=== PATIENT | female | born 1950 | race Caucasian/White ===

== ENCOUNTER → 2017-08-21 | Outpatient (CLI) | payer OTHER ==
[~2017-08-21] MED LIST: NS 100 ML IV 100 ML IV ONE
[2017-08-21 09:50] LABS: CREATININE 1.15 mg/dL (0.55-1.02)
--- NOTE | 2017-08-21 11:38 | CT ---
HISTORY: Periumbilical pain. Abdominal pain. Study: Computed tomography of the abdomen and pelvis: Multiple axial images were obtained throughou t the abdomen and pelvis after the ingestion of oral contrast and the injection of intravascular cont rast per standard protocol. Radiation dose reduction techniques utilized. Comparison: None Findings: Examination of the lung bases demonstrate minimal interstitial scarring. No pleural effusions, paren chymal infiltrates or pulmonary nodules are identified. The heart size is normal. There appears to be at least mild coronary arterial calcification. A small hiatal hernia is present. No appreciable pericardial effusion is noted. The liver demonstrates a tiny hypodense lesion in the right lobe of the liver laterally measuring zulay roximately 4 mm maximum dimension, most likely a tiny cyst. The gallbladder is nondistended. I see no evidence for calcified gallstones. No appreciable biliary duct dilatation is noted. The pancreas is normal in its appearance. A small splenic lobule is present. The spleen is normal in its appear ance. Mild thickening of the left adrenal gland is noted without a focal lesion. The right adrenal gland is normal. Both kidneys show mild lobular contour suggesting prior ischemic or inflammatory sc arring. There is what appears to be a large calcification in the upper pole of the left kidney measu ring approximately 11 mm in maximum dimension. This appears to be nonobstructing. The ureters are n ondilated. Several calcifications are present within the anatomic pelvis, felt represent phleboliths . The abdominal aorta shows moderate atherosclerotic change in the mid abdominal aorta. Mild is not ed along with the proximal renal arteries bilaterally. There is mild ectasia. The iliac arteries ar e normal in their appearance. The uterus is small and midline. No adnexal masses are identified. T he bladder contour is smooth. I see no evidence of free pelvic fluid or ascites. Injection granulom as are present along the gluteal regions. The stomach is nondistended. The duodenum and small bowel are normal. No evidence of mesenteric jose daniel nopathy is identified. The terminal ileum is normal. The appendix is normal. The ascending colon i s normal. There is mild wall thickening in the hepatic flexure, most likely due to nondistention. T he transverse colon is moderately redundant. Minimal wall thickening is noted. The descending colon is nondistended. There appear to be a couple diverticula present. There are a few diverticula at t he junction of the descending colon and sigmoid colon. The sigmoid colon is nondistended. There zulay ear be several diverticula present. The sigmoid colon is moderately redundant. Examination of the bone windows demonstrate [id number] anterior wedging of L2. Minimal endplat e compression is noted at this level. Mild endplate compression noted at L4 and moderate at L51. Th ngoc all appear to be remote. All moderately severe to severe degenerative changes noted in both hips , right greater than left. IMPRESSION: 1. There appears to be mild cortical irregularity both kidneys, most likely due to chronic ischemic change or inflammatory reaction. 2. Nonobstructing left renal calculus. 3. Mild diverticular disease. I see no evidence of diverticulitis. 4. There appear to be remote compression fracture of L2 anteriorly with endplate compression of L4 a nd L5. These all appear remote. 5. Degenerative change in the hips as described above. Reported By:
== END | disposition home or self-care (01) | DRG 392 ==
LOC: RAD 09:07
PROVIDERS: ATTEND Nurse Practitioner Family
DX: R10.84 Generalized abdominal pain (principal); R10.33 Periumbilical pain; N20.0 Calculus of kidney; K57.90 Diverticulosis of intestine, part unspecified, without perforation or abscess without bleeding; M24.152 Other articular cartilage disorders, left hip; M24.151 Other articular cartilage disorders, right hip
CPT/HCPCS: 36415; 74177; 82565; 84520; A4222

== ENCOUNTER → 2017-09-29 | Outpatient (CLI) | payer OTHER ==
--- NOTE | 2017-09-29 15:54 | MRI ---
HISTORY: Low back pain Study: MRI lumbar spine without contrast Comparison: None Technique: Multiplanar multi-sequence MRI of the lumbar spine was obtained. Sagittal T1, sagittal T2 , and stir weighted images, axial T1, and axial T2 images were obtained. Findings: Imaging of the lumbar spine demonstrates mild, grade 1, anterolisthesis of L4 on L5, likely secondary to advanced facet arthropathy at this level. There are chronic compression fractures involving the L 2, L4, and L5 vertebral bodies. There is approximately 30% loss of vertebral body height involving th e L2 vertebral body centrally and anteriorly. There is approximately 40% loss of vertebral body heigh t centrally involving the L5 vertebral body and approximately 20% loss of vertebral body height anter iorly involving the L4 vertebral body. No significant retropulsion of fracture fragments is appreciat ed. Chronic, very mild compression deformity of the L1 vertebral body is also noted. No acute or alfred y subacute compression fractures are identified within the lumbar spine. There is mild reactive edema within the anterior L2 superior and inferior endplates due to degenerative endplate change. Mild rowena ctive edema is noted involving the left L5-S1 facet due to facet arthropathy. The conus terminates at the T12-L1 level. Evaluation of the pre and paravertebral soft tissues is unremarkable. T12 -- L1: At the T12-L1 level there is mild facet hypertrophy without significant canal stenosis or neuroforaminal compromise. L1 -- L2: At the L1-L2 level there is facet hypertrophy and minimal disc ridging without significant canal stenosis or neuroforaminal compromise. L2 -- L3: At the L2-L3 level there is a broad-based disc bulge as well as facet hypertrophy, resultin g in very mild canal stenosis but no significant neuroforaminal compromise. L3 -- L4: At the L3-L4 level there is a small left lateral recess disc protrusion superimposed upon m ild broad-based disc ridging and advanced facet hypertrophy, resulting in no significant canal stenos is or neuroforaminal compromise. L4 -- L5: At the L4-L5 level there is a broad-based disc bulge and advanced facet hypertrophy as well as ligamentum flavum thickening which, along with listhesis at this level, are resulting in moderate to severe canal stenosis as well as [id number] bilateral neuroforaminal compromise. L5 -- S1: At the L5-S1 level there is a broad-based disc bulge as well as facet hypertrophy, resultin g in moderate bilateral neuroforaminal compromise, left greater than right. IMPRESSION: 1. Multilevel degenerative disc disease and facet arthropathy as detailed above, most significant at the L4-L5 level, where there is moderate to severe canal stenosis and bilateral [id number] neur oforaminal compromise. Bilateral moderate neuroforaminal compromise is also noted at the L5-S1 level. 2. Grade 1 anterolisthesis of L4 on L5. 3. Multiple compression fractures within the lumbar spine as described above. Reported By:
== END | disposition home or self-care (01) | DRG 552 ==
LOC: RAD 14:33
PROVIDERS: ATTEND Internal Medicine
DX: M54.5 Low back pain (principal); S32.020A Wedge compression fracture of second lumbar vertebra, initial encounter for closed fracture; S32.040A Wedge compression fracture of fourth lumbar vertebra, initial encounter for closed fracture; M51.36 Other intervertebral disc degeneration, lumbar region; X58.XXXA Exposure to other specified factors, initial encounter
CPT/HCPCS: 72148